=== PATIENT | female | born 2000 | race Caucasian/White ===

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

== ENCOUNTER 2021-03-15 01:31 | Emergency (ER) | payer OTHER ==
[2021-03-15 01:40] VITALS: BP 144/89; PULSE 92; TEMP 99.5; BMI 17.5
[2021-03-15] MEDS ORDERED: PENICILLIN V POTASSIUM 500 MG TABLET PO ONE (01:58)
[2021-03-15] MEDS ORDERED: IBUPROFEN 400 MG TABLET (FP) PO ONE ×2 (02:00→02:10)
[2021-03-15] MEDS ORDERED: AMOXICILLIN 500 MG CAPSULE (FP) PO ONE (02:09)
[2021-03-15] MEDS ORDERED: AMOXICILLIN 250 MG CAPSULE ONE (02:10)
== END 2021-03-15 02:14 | disposition home or self-care (01) ==
LOC: FER 01:31
DX: J03.90 Acute tonsillitis, unspecified (principal)
CPT/HCPCS: 87070; 99283-25

== ENCOUNTER 2022-02-28 12:10 | Emergency (ER) | payer OTHER ==
[2022-02-28] MEDS ORDERED: IBUPROFEN 400 MG TABLET (FP) PO ONE ×2 (13:25→13:34)
[2022-02-28 13:32] VITALS: BP 122/80; PULSE 100; RESP 16; TEMP 100.7; BMI 16.9
[2022-02-28 16:37] LABS: THROAT:GRP A STREP DETECTED (NOTDETECTED)
[2022-02-28] MEDS ORDERED: PENICILLIN G BENZATHINE 1,200,000 UNIT/2 ML PFS IM ONE ×2 (18:05→18:33)
== END 2022-02-28 18:50 | disposition home or self-care (01) ==
LOC: FER 12:10
PROC: 3E0233Z Introduction of Anti-inflammatory into Muscle, Percutaneous Approach (ICD-10-PCS; principal; 2022-02-28)
DX: J02.0 Streptococcal pharyngitis (principal)
CPT/HCPCS: 0241U-QW; 87651; 99284-25